=== PATIENT | male | born 1980 | race Caucasian/White ===

== ENCOUNTER 2017-02-10 14:27 | Emergency (ER) | payer MEDICAID ==
[~2017-02-10 14:27] MED LIST: ASPI-COR81 M3 PO; CLINDAMYCIN HC300 MG PO; INSULIN HUMA U SC; LAC PO; LANTUS SOLOS100 U/M1 SQ; METFORMIN HCL1000 MG PO; [UNRECOGNIZED DRUG - OTHER] SC
[2017-02-10 17:51] VITALS: BP 122/71
== END 2017-02-10 17:51 | disposition home or self-care (01) ==
LOC: ED 14:27
DX: H81.10 Benign paroxysmal vertigo, unspecified ear (principal); R03.0 Elevated blood-pressure reading, without diagnosis of hypertension; E11.65 Type 2 diabetes mellitus with hyperglycemia; I10 Essential (primary) hypertension; J45.909 Unspecified asthma, uncomplicated
CPT/HCPCS: J8597

== ENCOUNTER 2017-06-05 09:40 | Emergency (ER) | payer MEDICAID ==
[2017-06-05 10:45] LABS: PLATELET COUNT 381 x10^3mcL (130-400)
[2017-06-05 11:17] LABS: RED CELL DISTRIBUTION WIDTH 15.7 % (11.5-14.5)
[2017-06-05 11:38] LABS: BAND NEUTROPHIL 2 % (0-10); MONOCYTE 4 % (0-7); SEGMENTED NEUTROPHILS 66 % (37-75)
[2017-06-05 11:39] LABS: PLATELET MORPHOLOGY GIANT PLATELET SEEN; rbc morphology (normal/abnorm) ABNORMAL (NORMAL)
[2017-06-05 11:54] LABS: CALCIUM 9.2 mg/dL (8.5-10.1); CHLORIDE SERUM 98 mmol/L (98-107); CREATININE SERUM 0.8 mg/dL (0.7-1.3); GFR1 > 60 mL/min; GLUCOSE SERUM 411 mg/dL (74-106); SODIUM SERUM 134 mmol/L (136-145)
[2017-06-05 11:59] LABS: ALBUMIN 3.7 g/dL (3.4-5.0); ALKALINE PHOSPHATASE 147 U/L (46-116); BILIRUBIN TOTAL 0.49 mg/dL (0.20-1.00); TOTAL PROTEIN, SERUM 7.7 g/dL (6.4-8.2)
[2017-06-05 12:20] LABS: ALT/SGPT 27 U/L (16-63); AST/SGOT 28 U/L (15-37)
[2017-06-05 13:02] VITALS: BP 144/99
== END 2017-06-05 13:11 | disposition home or self-care (01) ==
LOC: ED 09:40
PROVIDERS: Emergency Medicine
DX: E11.65 Type 2 diabetes mellitus with hyperglycemia (principal); R82.4 Acetonuria; I10 Essential (primary) hypertension; J45.909 Unspecified asthma, uncomplicated; Z79.4 Long term (current) use of insulin; Z79.84 Long term (current) use of oral hypoglycemic drugs
CPT/HCPCS: J7030

== ENCOUNTER 2017-08-29 19:51 | Emergency (ER) | payer MEDICAID ==
[~2017-08-29] VITALS: Ht 180.3 cm; Wt 110.7 kg
[2017-08-29 19:53] VITALS: Ht 180.3 cm; Wt 110.7 kg
[2017-08-29 23:12] VITALS: BP 131/88
== END 2017-08-29 23:12 | disposition home or self-care (01) ==
LOC: ED 19:51
DX: J20.9 Acute bronchitis, unspecified (principal); I10 Essential (primary) hypertension; E11.9 Type 2 diabetes mellitus without complications; J45.909 Unspecified asthma, uncomplicated
CPT/HCPCS: 87804; J1885; Q0092

== ENCOUNTER 2017-11-08 23:35 | Emergency (ER) | payer MEDICAID ==
[~2017-11-08] VITALS: Ht 180.3 cm; Wt 108.9 kg
[2017-11-09 00:06] VITALS: Ht 180.3 cm; Wt 108.9 kg
[2017-11-09 03:13] LABS: BASOPHIL % 0.5 % (0-2); PLATELET COUNT 343 x10^3mcL (130-400); RED CELL DISTRIBUTION WIDTH 14.2 % (11.5-14.5)
[2017-11-09 06:17] VITALS: BP 137/93
[2017-11-09 06:31] LABS: ALBUMIN 3.5 g/dL (3.4-5.0); ALKALINE PHOSPHATASE 119 U/L (46-116); ALT/SGPT 32 U/L (16-63); AST/SGOT 14 U/L (15-37); BILIRUBIN TOTAL 0.3 mg/dL (0.20-1.00); TOTAL PROTEIN, SERUM 7.4 g/dL (6.4-8.2)
[2017-11-09 06:48] LABS: CARBON DIOXIDE 17.5 mmol/L (21-32); CHLORIDE SERUM 94 mmol/L (98-107); CREATININE SERUM 0.9 mg/dL (0.7-1.3); GFR1 > 60 mL/min; GLUCOSE SERUM 444 mg/dL (74-106); POTASSIUM SERUM 3.7 mmol/L (3.5-5.1); SODIUM SERUM 134 mmol/L (136-145)
[2017-11-09 07:48] LABS: AMPHETAMINE QUAL UR NONE DETECTED (NEG <=1000)
== END 2017-11-09 07:59 | disposition home or self-care (01) ==
LOC: ED 23:35
PROVIDERS: Emergency Medicine
DX: M54.5 Low back pain (principal); R63.0 Anorexia; R63.4 Abnormal weight loss
CPT/HCPCS: J1885; J2060; J7030

== ENCOUNTER 2018-03-11 09:34 | Emergency (ER) | payer MEDICAID ==
[~2018-03-11] VITALS: Ht 180.3 cm; Wt 98.9 kg
[2018-03-11 09:39] VITALS: Ht 180.3 cm; Wt 98.9 kg
[2018-03-11 10:24] LABS: BASOPHIL % 0.8 % (0-2); PLATELET COUNT 372 x10^3mcL (130-400); RED CELL DISTRIBUTION WIDTH 14.1 % (11.5-14.5)
[2018-03-11 10:37] LABS: CALCIUM 9.1 mg/dL (8.5-10.1); CARBON DIOXIDE 27.9 mmol/L (21-32); CHLORIDE SERUM 101 mmol/L (98-107); GFR1 > 60 mL/min; GLUCOSE SERUM 327 mg/dL (74-106); POTASSIUM SERUM 3.5 mmol/L (3.5-5.1); SODIUM SERUM 135 mmol/L (136-145)
[2018-03-11 10:42] LABS: ALBUMIN 3.5 g/dL (3.4-5.0); ALKALINE PHOSPHATASE 124 U/L (46-116); ALT/SGPT 29 U/L (16-63); AST/SGOT 12 U/L (15-37); BILIRUBIN TOTAL 0.29 mg/dL (0.20-1.00); LIPASE 203 IU/L (73-393); TOTAL PROTEIN, SERUM 7.2 g/dL (6.4-8.2)
[2018-03-11 11:45] LABS: UA SPECIFIC GRAVITY 1.015 (1.005-1.035); microscopic required? YES; urine erythrocyte NEGATIVE (NEGATIVE)
[2018-03-11 12:10] VITALS: BP 149/87
== END 2018-03-11 12:10 | disposition home or self-care (01) ==
LOC: ED 09:34
PROVIDERS: Emergency Medicine
DX: K52.9 Noninfective gastroenteritis and colitis, unspecified (principal); E86.0 Dehydration; J45.909 Unspecified asthma, uncomplicated; E11.9 Type 2 diabetes mellitus without complications; I10 Essential (primary) hypertension
CPT/HCPCS: J2405; J7030

== ENCOUNTER 2018-07-15 10:10 | Emergency (ER) | payer MEDICAID ==
[~2018-07-15] VITALS: Ht 180.3 cm; Wt 96.2 kg
[2018-07-15 10:14] VITALS: Ht 180.3 cm; Wt 96.2 kg
[2018-07-15 11:02] LABS: CALCIUM 9.6 mg/dL (8.5-10.1); CHLORIDE SERUM 94 mmol/L (98-107); GFR1 > 60 mL/min; GLUCOSE SERUM 423 mg/dL (74-106); POTASSIUM SERUM 3.9 mmol/L (3.5-5.1); SODIUM SERUM 131 mmol/L (136-145)
[2018-07-15 11:03] LABS: BASOPHIL % 0.2 % (0-2); PLATELET COUNT 368 x10^3mcL (130-400)
[2018-07-15 11:04] LABS: RED CELL DISTRIBUTION WIDTH 14.9 % (11.5-14.5)
[2018-07-15 11:07] LABS: ALBUMIN 4.2 g/dL (3.4-5.0); ALKALINE PHOSPHATASE 157 U/L (46-116); ALT/SGPT 45 U/L (16-63); AST/SGOT 17 U/L (15-37); BILIRUBIN TOTAL 0.6 mg/dL (0.20-1.00)
[2018-07-15 11:27] LABS: TOTAL PROTEIN, SERUM 8.8 g/dL (6.4-8.2)
[2018-07-15 11:48] LABS: UA SPECIFIC GRAVITY 1.015 (1.005-1.035); microscopic required? YES; urine erythrocyte TRACE (NEGATIVE)
[2018-07-15 12:56] VITALS: BP 130/92
== END 2018-07-15 13:02 | disposition home or self-care (01) ==
LOC: ED 10:10
PROVIDERS: Emergency Medicine
DX: J45.901 Unspecified asthma with (acute) exacerbation (principal); E86.0 Dehydration; E11.65 Type 2 diabetes mellitus with hyperglycemia; I10 Essential (primary) hypertension
CPT/HCPCS: 82962; J1815; J7030; J7613; J7644; Q0092

== ENCOUNTER 2018-08-27 11:27 | Emergency (ER) | payer MEDICAID | END 2018-08-27 14:31 | disposition home or self-care (01) | LOC: ED 11:27 ==

== ENCOUNTER 2018-09-02 07:46 | Emergency (ER) | payer MEDICAID, OTHER | END 2018-09-02 12:23 | disposition home or self-care (01) | LOC: ED 07:46 ==

== ENCOUNTER 2018-11-04 10:35 | Emergency (ER) | payer MEDICAID ==
[~2018-11-04] VITALS: Ht 180.3 cm; Wt 92.1 kg
[2018-11-04 13:02] VITALS: BP 139/91
== END 2018-11-04 13:02 | disposition home or self-care (01) ==
LOC: ED 10:35
DX: M54.41 Lumbago with sciatica, right side (principal); I10 Essential (primary) hypertension; E11.9 Type 2 diabetes mellitus without complications; J45.909 Unspecified asthma, uncomplicated; F17.210 Nicotine dependence, cigarettes, uncomplicated
CPT/HCPCS: J1885

== ENCOUNTER 2020-01-24 12:14 | Emergency (ER) | payer SELFPAY ==
[~2020-01-24] VITALS: Ht 182.9 cm; Wt 96.2 kg
[2020-01-24 12:24] VITALS: Ht 182.9 cm; Wt 96.2 kg
[2020-01-24 13:34] LABS: CALCIUM 8.5 mg/dL (8.5-10.1); CARBON DIOXIDE 27.1 mmol/L (21-32); CHLORIDE SERUM 101 mmol/L (98-107); CREATININE SERUM 0.9 mg/dL (0.7-1.3); GFR1 > 60 mL/min; GLUCOSE SERUM 416 mg/dL (74-106); POTASSIUM SERUM 3.6 mmol/L (3.5-5.1); SODIUM SERUM 138 mmol/L (136-145)
[2020-01-24 14:43] VITALS: BP 130/72
== END 2020-01-24 14:43 | disposition home or self-care (01) ==
LOC: ED 12:14
PROVIDERS: Emergency Medicine
DX: E11.65 Type 2 diabetes mellitus with hyperglycemia (principal); M54.40 Lumbago with sciatica, unspecified side; J45.909 Unspecified asthma, uncomplicated; I10 Essential (primary) hypertension; Z98.890 Other specified postprocedural states
CPT/HCPCS: J1815; J1885; J7030; Q0092